=== PATIENT | female | born 1970 | race Caucasian/White ===

== ENCOUNTER 2017-05-08 10:21 | Emergency (ER) | payer MEDICAID ==
[~2017-05-08] VITALS: Ht 154.9 cm; Wt 86.2 kg
[2017-05-08 11:17] LABS: BASOPHIL % 0.6 % (0-2); PLATELET COUNT 249 x10^3mcL (130-400)
[2017-05-08 11:18] LABS: RED CELL DISTRIBUTION WIDTH 15.1 % (11.5-14.5)
[2017-05-08 11:25] LABS: CALCIUM 8.4 mg/dL (8.5-10.1); CARBON DIOXIDE 21.7 mmol/L (21-32); CHLORIDE SERUM 107 mmol/L (98-107); CREATININE SERUM 0.7 mg/dL (0.6-1.0); GFR1 > 60 mL/min; GLUCOSE SERUM 153 mg/dL (74-106); POTASSIUM SERUM 3.5 mmol/L (3.5-5.1); SODIUM SERUM 140 mmol/L (136-145)
[2017-05-08 11:37] LABS: UA SPECIFIC GRAVITY 1.025 (1.005-1.035); microscopic required? YES; urine erythrocyte 1+ (NEGATIVE)
[2017-05-08 11:38] LABS: ALKALINE PHOSPHATASE 82 U/L (46-116); ALT/SGPT 28 U/L (14-59); AST/SGOT 20 U/L (15-37); BILIRUBIN TOTAL 0.69 mg/dL (0.20-1.00); MAGNESIUM 1.9 mg/dL (1.8-2.4); T4(THYROXINE) 7.6 ug/dL (4.7-13.3); TOTAL PROTEIN, SERUM 7.2 g/dL (6.4-8.2)
[2017-05-08 11:40] LABS: ALBUMIN 3.2 g/dL (3.4-5.0)
[2017-05-08 13:26] VITALS: BP 101/59
== END 2017-05-08 13:40 | disposition home or self-care (01) ==
LOC: ED 10:21
PROVIDERS: Emergency Medicine
DX: R53.1 Weakness (principal); F32.9 Major depressive disorder, single episode, unspecified
CPT/HCPCS: 36415

== ENCOUNTER 2020-01-09 16:46 | Emergency (ER) | payer MEDICAID ==
[~2020-01-09] VITALS: Ht 157.5 cm; Wt 85.7 kg
[2020-01-09 17:15] VITALS: Ht 157.5 cm; Wt 85.7 kg
[2020-01-09 19:17] LABS: BASOPHIL % 0.7 % (0-2); PLATELET COUNT 320 x10^3mcL (130-400)
[2020-01-09 19:18] LABS: RED CELL DISTRIBUTION WIDTH 15.3 % (11.5-14.5)
[2020-01-09 19:25] LABS: UA SPECIFIC GRAVITY <=1.005 (1.005-1.035); microscopic required? YES; urine erythrocyte TRACE (NEGATIVE)
[2020-01-09 19:40] LABS: ALBUMIN 3.4 g/dL (3.4-5.0); ALKALINE PHOSPHATASE 96 U/L (46-116); ALT/SGPT 24 U/L (14-59); AST/SGOT 14 U/L (15-37); BILIRUBIN TOTAL 0.2 mg/dL (0.20-1.00); CALCIUM 9.2 mg/dL (8.5-10.1); CARBON DIOXIDE 27.4 mmol/L (21-32); CHLORIDE SERUM 103 mmol/L (98-107); CREATININE SERUM 0.6 mg/dL (0.6-1.0); GFR1 > 60 mL/min; GLUCOSE SERUM 93 mg/dL (74-106); LIPASE 186 IU/L (73-393); POTASSIUM SERUM 3.8 mmol/L (3.5-5.1); SODIUM SERUM 139 mmol/L (136-145); TOTAL PROTEIN, SERUM 7.6 g/dL (6.4-8.2)
[2020-01-09 20:57] VITALS: BP 114/71
== END 2020-01-09 20:57 | disposition home or self-care (01) ==
LOC: ED 16:46
PROVIDERS: Emergency Medicine
DX: R51 Headache (principal); R10.12 Left upper quadrant pain; R35.0 Frequency of micturition; R39.15 Urgency of urination
CPT/HCPCS: 36415